=== PATIENT | female | born 1975 | race Two or more races ===

== ENCOUNTER 2016-09-18 16:29 | Emergency (ER) | payer OTHER ==
[2016-09-18] MEDS ORDERED: ACETAMINOPHEN 325 MG/TAB TABLET PO ONE (16:50)
[2016-09-18] MEDS ORDERED: MORPHINE 4 MG/ML INJECTION IV ONE (16:50)
[2016-09-18] MEDS ORDERED: NS 1,000 ML IV ONE (16:50)
[2016-09-18] MEDS ORDERED: ONDANSETRON HCL 4 MG/2 ML VIAL IV ONE (16:50)
[2016-09-18 16:53] VITALS: BMI 34.7
--- NOTE | 2016-09-18 16:53 | EDPRACDOC ---
- General Information Stated Complaint: FEVER. L FACIAL NUMBNESS Time Seen by Provider: 09/18/16 16:45 Information Source: Patient Mode of Arrival: Car Home Medications: Home Medications Ciprofloxacin HCl [Cipro] 500 mg PO BID #20 tab 04/18/16 Hydrochlorothiazide 25 mg PO QAM 04/18/16 Hydrocodone/Acetaminophen [Lortab 5-325 mg Tablet] 1 each PO Q6 #14 tablet 04/18 Metronidazole [Flagyl] 500 mg PO BID #20 tab 04/18/16 Promethazine Dextromethorphan [Phenergan DM] 5 ml PO Q4H PRN #120 ml 09/18/16 Allergies/Adverse Reactions: Allergies Allergy/AdvReac Type Severity Reaction Status Date / Time hydromorphone [From Dilaudid] Allergy Difficulty Verified 09/18/16 17:36 Breathing aspirin AdvReac Unknown Dizziness Verified 04/18/16 17:15 - History of Present Illness Onset: 2 days HPI: Pt c/o fever 104, cough, congestion, headache, nausea, diarrhea, back pain, abd pain, chest pain with cough x 2-3 days. Pt states went to urgent care yesterday and dx with flu. Pt states today L facial numbness. Relevant History: Denies: Chronic Illness, Diabetes, Immunosuppression, Steroid use Treated Infection: None Max Temperature: 104 F Improves With: Reports: Ibuprofen Symptoms: Reports: Chills, Cough, Fever, Nasal Symptoms, Sore Throat, Abdominal Pain, Headache, Myalgia, Nausea ED Past Medical History - History Reviewed Yes Nurses notes reviewed and agree except as marked - Patient Medical History Cardiac History: Reports: Hypertension Psychological History: Denies: Depression Additional Past Medical History: MIGRAINE - Social Medical History Smoking Status: Never smoker ETOH: None Substance Abuse: None EDM Review of Systems - Review of Systems Constitutional: Chills, Fever Ears: No Symptoms Reported. negative: Pain, Hearing Loss, Drainage, Ear Pulling Throat: Pain Nose: Congestion Mouth: No Symptoms Reported. negative: Pain, Drooling Respiratory: Cough Cardiovascular: Chest Pain Gastrointestinal: Diarrhea, Nausea, Pain Genitourinary: No Symptoms Reported. negative: Dysuria, Hematuria, Frequency, Discharge, Bleeding, Testicular Pain, Neurological: Headache, Numbness Musculoskeletal: Back Integumentary: No Symptoms Reported. negative: Itching, Rash, Bruising, Wound Allergic/Immunologic: No Symptoms Reported. negative: Hives, Itching Hematologic: No Symptoms Reported. negative: Lymphadenopathy, Easy Bruising, Easy Bleeding Psychiatric: No Symptoms Reported. negative: Anxiety, Depression, Hallucinations, Insomnia, Suicidal - Physical Exam Constitutional: Alert Oriented to: Time, Person, Place Last recorded Vital Signs: Oxygen Pulse Oxygen Saturation O2 Device Oxygen Flow Rate Fraction of Inspired Oxygen ( FIO2) - HEENT Head: Normal ( normocephalic) Eye Exam: Normal (PERRL, EOMI, Sclera white) Oropharynx: Normal (Pharynx:Moist without exudate,Gums-no swelling) Tympanic Membrane: Normal ENT EAC: Normal Nose: Congestion Neck: Normal (FROM, trachea at midline) - Respiratory/Cardiovascular Respiratory: Normal - CTA (BBS clear to auscultation without adventitious sounds ) Cardiovascular: Tachycardia - GI Auscultation: Normal (NABS) Palpation: Normal (Soft,No rebound or guarding, non distended) Tenderness: Non tender - Musculoskeletal Back: Normal (Non-Tender) Extremities: Normal (Normal tone, Pulses 2+ No cyanosis or edema, FROM) - Integumentary Skin: Normal, Warm, Dry Lymphatics: Normal (no adenopathy) - Neurologic Memory Impaired: Normal Motor Function: Normal (Normal tone, Pulses 2+ No cyanosis or edema, FROM) Mood Description: Normal Perception: Normal - Differential Diagnosis Bronchitis, Dehydration, Influenza, Pneumonia, Pyelonephritis, URI, UTI, Viral Syndrome - Re-evaluation Re-evaluation 1 Re-evaluation Time: 19:33 (improved) - Results 09/18/16 17:18 09/18/16 17:18 09/18/16 19:34 Laboratory Results - last 24 hr 09/18/16 09/18/16 09/18/16 17:05 17:05 17:18 WBC RBC Hgb Hct MCV MCH MCHC RDW Plt Count MPV Neut % (Auto) Lymph % (Auto) [place] % (Auto) Eos % (Auto) Baso % (Auto) Absolute Neuts (auto) Absolute Lymphs (auto) Sodium 137 Potassium 3.3 L Chloride 102 Carbon Dioxide 21 L Anion Gap 17 H BUN 6 L Creatinine 0.60 Estimated GFR (MDRD) > 60 Glucose 92 Calculated Osmolality 262 L Calcium 8.6 Total Bilirubin 0.4 AST 139 H ALT 240 H Alkaline Phosphatase 126 Total Protein 8.0 Albumin 4.2 Urine Color Yellow Urine Clarity Clear Urine pH 6.0 Ur Specific [place] 1.005 Urine Protein Neg Urine Glucose (UA) Neg Urine Ketones Neg Urine Occult Blood 2+ H Urine Nitrite Neg Urine Bilirubin Neg Urine Urobilinogen 0.2 Ur Leukocyte Esterase Neg Urine RBC 2-5 Urine WBC 0-2 Ur Epithelial Cells 1+ Urine Bacteria Few Urine Mucus Occ Urine Test Neg 09/18/16 17:18 WBC 5.8 RBC 4.21 Hgb 11.8 L Hct 35.0 L MCV 83 MCH 28.0 MCHC 33.7 RDW 13.7 Plt Count 136 MPV 9.1 Neut % (Auto) 65.4 Lymph % (Auto) 16.2 L [place] % (Auto) 10.6 H Eos % (Auto) 7.5 H Baso % (Auto) 0.3 Absolute Neuts (auto) 3.77 Absolute Lymphs (auto) 0.93 Sodium Potassium Chloride Carbon Dioxide Anion Gap BUN Creatinine Estimated GFR (MDRD) Glucose Calculated Osmolality Calcium Total Bilirubin AST ALT Alkaline Phosphatase Total Protein Albumin Urine Color Urine Clarity Urine pH Ur Specific [place] Urine Protein Urine Glucose (UA) Urine Ketones Urine Occult Blood Urine Nitrite Urine Bilirubin Urine Urobilinogen Ur Leukocyte Esterase Urine RBC Urine WBC Ur Epithelial Cells Urine Bacteria Urine Mucus Urine Test - Diagnostic Imaging Head Image interpreted by: Radiologist IMPRESSION: Essentially normal head CT, as detailed above. No acute findings. Chest Image interpreted by: Radiologist IMPRESSION: No active cardiopulmonary disease. Decision Time to Discharge: 19:34 - Departure Disposition: Home Condition: Good Final Diagnosis: Influenza, Nausea and vomiting Instructions: Fever in Adults (ED), Influenza (ED) Education/Counseling Given To: Patient, Family Member Education/Counseling Given Regarding: Diagnosis, Treatment, Follow Up Referrals: Valeria Powers MD [Primary Care Provider] - One Week Prescriptions: Promethazine Dextromethorphan [Phenergan DM] 5 ml PO Q4H PRN #120 ml PRN Reason: Cough Additional Instructions: Continue medications as previously directed. Use Tylenol every 4 hours and Motrin every 6 hours as needed for fever
[2016-09-18] MEDS ORDERED: NS 1,000 ML IV SCH (17:00)
[2016-09-18 17:48] LABS: BLOOD UREA NITROGEN 6 MG/DL (7-17); CALCIUM 8.6 MG/DL (8.4-10.2); CALCULATED OSMOLALITY 262 MOs/Kg (270-290); CHLORIDE 102 mEq/L (98-107); GLUCOSE 92 MG/DL (70-99); SODIUM LEVEL 137 mEq/L (137-146)
--- NOTE | 2016-09-18 18:05 | DIRPT ---
CLINICAL DATA: Facial numbness. Left facial droop and numbness today. EXAM: CT HEAD WITHOUT CONTRAST TECHNIQUE: Contiguous axial images were obtained from the base of the skull through the vertex without intravenous contrast. COMPARISON: Head CT dated 06/04/2012. FINDINGS: Ventricles are normal in size and configuration. All areas of the brain demonstrate normal mann-white matter attenuation. There is no mass, hemorrhage, edema or other evidence of acute parenchymal abnormality. No extra-axial hemorrhage. Previous head CT report questioned the presence of a chronic empty sella and this configuration is unchanged. No focal osseous abnormality. Visualized upper paranasal sinuses are clear. Mastoid air cells are clear. Superficial soft tissues are unremarkable. IMPRESSION: Essentially normal head CT, as detailed above. No acute findings. Electronically Signed By: Brad Morrison M.D. On: 09/18/2016 18:02
[2016-09-18 18:18] LABS: WBC/URINE 0-2 (0-5)
--- NOTE | 2016-09-18 18:18 | DIRPT ---
CLINICAL DATA: Cough, sternal chest pain EXAM: CHEST 2 VIEW COMPARISON: 04/18/2016 FINDINGS: Cardiomediastinal silhouette is unremarkable. No acute infiltrate or pleural effusion. No pulmonary edema. Bony thorax is unremarkable. IMPRESSION: No active cardiopulmonary disease. Electronically Signed By: Kraig Charles M.D. On: 09/18/2016 18:15
[2016-09-18 18:20] LABS: URINE OCCULT BLOOD 2+ (NEG/TRACE)
[2016-09-18 18:21] LABS: LEUKOCYTES/URINE NEG (NEGATIVE); NITRITE/URINE NEG (NEGATIVE)
[2016-09-18 19:20] LABS: AUTOMATED BASOPHIL 0.3 % (0-2); AUTOMATED EOSINOPHIL 7.5 % (0-5); AUTOMATED LYMPH 16.2 % (17-44); AUTOMATED MONOCYTE 10.6 % (3-10); AUTOMATED NEUTROPHIL 65.4 % (45-76); MPV 9.1 fL (7.4-10.4)
[2016-09-18 19:49] VITALS: BP 106/54; PULSE 97; TEMP 99
== END 2016-09-18 19:58 | disposition home or self-care (01) ==
LOC: EDMC 16:29
DX: J11.1 Influenza due to unidentified influenza virus with other respiratory manifestations (principal); R11.2 Nausea with vomiting, unspecified; R20.0 Anesthesia of skin
CPT/HCPCS: 36415; 70450; 71020; 80053; 81001; 81025; 85025; 87040; 96361; 96374; 99283; J2405; J3490; J2270